=== PATIENT | female | born 1935 | race Caucasian/White ===

== ENCOUNTER 2018-11-06 15:57 | Emergency (ER) | payer OTHER ==
--- NOTE | 2018-11-06 16:05 | PDOC ---
History of Present Illness - General Chief Complaint: Injury Stated Complaint: BRUISING TO RIGHT FACE AND CHIN FELL Time Seen by Provider: 11/06/18 16:03 - History of Present Illness Initial Comments: 11/06/18 16:04 83 yo F with h/o HTN, BIBA from [facility], with diarrhea, and closed head injury s/p fall. Patient reports 2 days of loose watery stools x 4-5 per day, with absent BPR. Patient reports fall one week ago, but does not recall event. 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 Patient typically ambulates with walker unassisted at assisted nursing facility. Patient does not recall head trauma, or LOC. Denies AC. Patient reports increased thirst x 1 day. Patient denies ROMERO, vision change, tinnitus, cough, wheezing, palpitations, orthopnea, PND, leg pain/swelling, N/V, F,C, CP, SOB, urinary complaints, abdominal pain, constipation, lightheadedness, weakness, sensory changes. PMHx: as noted above. Denies h/o ACS/ID, TIA/CVA. ROS: as noted Allergies: NKDA Past History - Past Medical History Allergies/Adverse Reactions: Allergies Allergy/AdvReac Type Severity Reaction Status Date / Time No Known Allergies Allergy Unverified 11/06/18 15:58 Home Medications: Ambulatory Orders Atenolol [Tenormin -] 100 mg PO DAILY 11/06/18 Review of Systems - Review of Systems Comments:: 11/06/18 16:04 GENERAL/CONSTITUTIONAL: No fever or chills. No weakness. HEAD, EYES, EARS, NOSE AND THROAT: No change in vision. No ear pain or discharge. No sore throat. CARDIOVASCULAR: No chest pain or shortness of breath RESPIRATORY: No cough, wheezing, or hemoptysis. GASTROINTESTINAL: + diarrhea. No nausea, vomiting, constipation. GENITOURINARY: No dysuria, frequency, or change in urination. MUSCULOSKELETAL: No joint or muscle swelling or pain. No neck or back pain. SKIN: No rash NEUROLOGIC: No headache, vertigo, loss of consciousness, or change in strength/ sensation. ENDOCRINE: No increased thirst. No abnormal weight change HEMATOLOGIC/LYMPHATIC: No anemia, easy bleeding, or history of blood clots. ALLERGIC/IMMUNOLOGIC: No hives or skin allergy. *Physical Exam - Physical Exam Comments: 11/06/18 16:05 GENERAL: Awake, alert, and fully oriented, in no acute distress HEAD: normocephalic, EYES: PERRLA, EOMI, sclera anicteric, conjunctiva clear ENT: + Dry mucous membranes. Auricles normal inspection, hearing grossly normal , nares patent, oropharynx clear without exudates. NECK: Normal ROM, supple, no lymphadenopathy, JVD, or masses LUNGS: No distress, speaks full sentences, clear to auscultation bilaterally HEART: Regular rate and rhythm, normal S1 and S2, no murmurs, rubs or gallops, peripheral pulses normal and equal bilaterally. ABDOMEN: Soft, nontender, normoactive bowel sounds. No guarding, no rebound. No masses EXTREMITIES : Normal inspection, Normal range of motion, no edema. No clubbing or cyanosis. NEUROLOGICAL: Cranial nerves II through XII grossly intact. Normal speech, normal gait, no focal sensorimotor deficits SKIN: Multiple bruises/ecchymossis to right sided lateral face, nose, BL LE, and left scapula. Warm, Dry, normal turgor. ED Treatment Course - LABORATORY CBC & Chemistry Diagram: 11/06/18 16:30 11/06/18 16:35 Medical Decision Making - Medical Decision Making 11/06/18 16:06 83 yo F BIBA with vomiting, generalized weakness, recurrent falls. BP 180,83, HR 53, AF, A&Ox3, GCS 15. ACS/ID r/o.No evidence of basilar skull fracture. CTH r/o fracture, hematoma, hemorrhage. Nexus Neg C-SPINE. + Multiple bruises/ ecchymossis to right sided lateral face, nose, BL LE, and Left scapula. Will assess for VBI/TIA, hypoglycemia, cardiac dyssarythmias, electrolyte abnml, metabolic and toxic derangements, acid-base disturbances, infection. ED Course: 11/06/18 17:28 CBC: Unremarkable K+ 3.2 Kdur 40 MeQ Trop: Neg 11/06/18 17:42 EKG: NSR with absent SANTOSH, STD. Nml R wave progression, and axis. Nml interval duration. + Premature supravent contractions. 11/06/18 18:26 CTH: No acute pathoogy Patient ambulating at bedside without difficulty. 11/06/18 18:53 Patient unable to produce urine NS 1 L *DC/Admit/Observation/Transfer Diagnosis at time of Disposition: Diarrhea Qualifiers: Diarrhea type: unspecified type Qualified Code(s): R19.7 - Diarrhea, unspecified - Discharge Dispostion Condition at time of disposition: Stable Decision to Admit order: No - Referrals - Patient Instructions Printed Discharge Instructions: How to Prevent Falls Additional Instructions: Please return to the emergency department with any new or worsening symptoms or concerns. Please follow up with your primary care physician within 72 hours. - Post Discharge Activity - Attestations Physician Attestion: 11/06/18 16:05 I attest to the information provided in this note.
[2018-11-06 16:16] VITALS: BP 180/83; PULSE 52; TEMP 97.3; BMI 25.7
--- NOTE | 2018-11-06 16:35 | PDOC ---
Attending Attestation - Resident Resident Name: ChinCkFlex - ED Attending Attestation I have performed the following: I have examined & evaluated the patient, The case was reviewed & discussed with the resident, I agree w/resident's findings & plan, Exceptions are as noted - HPI HPI: 11/06/18 18:54 83 yo F with h/o HTN, BIBA from [facility] with diarrhea and closed head injury s/p fall. Diarrhea x 2 days Fall 1 week ago, yesterday and today Patient typically ambulates with walker unassisted at assisted nursing facility. Denies anticoagulation - Physicial Exam PE: 11/06/18 18:56 GENERAL: Awake, alert, and fully oriented, in no acute distress HEAD: normocephalic, EYES: PERRLA, EOMI, no scleral injection ENT: + Dry mucous membranes. hearing grossly normal NECK: Normal ROM, supple, no midline tenderness LUNGS: No distress, speaks full sentences, clear to auscultation bilaterally HEART: Regular rate and rhythm, normal S1 and S2, no murmurs, rubs or gallops, peripheral pulses normal and equal bilaterally. ABDOMEN: Soft, nontender, normoactive bowel sounds. No guarding, no rebound. No masses EXTREMITIES : Normal inspection, Normal range of motion NEUROLOGICAL: Cranial nerves II through XII grossly intact. Normal speech, normal gait, no focal sensorimotor deficits SKIN: Multiple bruises/ecchymossis to right sided lateral face, nose, BL LE, and left scapula. Warm, Dry, normal turgor. - Medical Decision Making 11/06/18 18:57 Laboratory Tests 11/06/18 11/06/18 11/06/18 16:30 16:30 16:30 WBC 8.2 Hgb 14.7 Hct 44.9 Plt Count 247 BUN Creatinine Creatine Kinase 340 H Creatine Kinase Index 3.7 CK-MB (CK-2) 12.8 H Troponin I < 0.03 11/06/18 16:35 WBC Hgb Hct Plt Count BUN 23 H Creatinine 0.7 Creatine Kinase Creatine Kinase Index CK-MB (CK-2) Troponin I EKG: NSR rate of 90 bpm, axis nml, intervals nml, no st elevation or depression CT head: Frontal sinusitis, No ICH 11/06/18 18:58 Awaiting UA Will plan to discharge to home
[2018-11-06 16:43] LABS: BASO % 0.5 % (0-2.0); EOS % 1.4 % (0-4.5); HEMATOCRIT 44.9 % (32.4-45.2); HEMOGLOBIN 14.7 GM/dl (10.7-15.3); LYMPH % 14.7 % (8-40); MCH 30.1 pg (25.7-33.7); MCHC 32.8 g/dl (32.0-36.0); MEAN CELL VOLUME 91.7 fl (80-96); MEAN PLT VOLUME 9.2 fl (7.5-11.1); MONO % 8.4 % (3.8-10.2); PLATELET COUNT 247 K/MM3 (134-434); RDW 13.8 % (11.6-15.6); WHITE BLOOD COUNT 8.2 K/mm3 (4.0-10.8)
[2018-11-06 16:58] LABS: ALBUMIN 3.7 g/dl (3.4-5.0); ALK PHOS 97 U/L (45-117); ANION GAP 12 MMOL/L (8-16); BILIRUBIN,TOTAL 0.7 mg/dl (0.2-1); BLOOD UREA NITROGEN 23 mg/dl (7-18); CALCIUM 9.9 mg/dl (8.5-10); CHLORIDE 101 mmol/L (98-107); CO2 23 mmol/L (21-32); CREATININE 0.7 mg/dl (0.55-1.3); GLUCOSE,RANDOM 105 mg/dl (74-106); POTASSIUM 3.2 mmol/L (3.5-5.1); SGOT/AST 63 U/L (15-37); SGPT/ALT 36 U/L (13-61); SODIUM 136 mmol/L (136-145)
[2018-11-06] MEDS ORDERED: POTASSIUM CHLORIDE TABS 20 MEQ TABLET.ER (FP) PO ONE ×2 (17:27→17:31)
[2018-11-06] MEDS ORDERED: SODIUM CHLORIDE 1,000 ML IV STA (18:53)
--- NOTE | 2018-11-07 16:46 | EKG ---
Test Reason : Blood Pressure : / mmHG Vent. Rate : 090 BPM Atrial Rate : 090 BPM P-R Int : 118 ms QRS Dur : 070 ms QT Int : 392 ms P-R-T Axes : 069 045 039 degrees QTc Int : 479 ms POOR DATA QUALITY, INTERPRETATION MAY BE ADVERSELY AFFECTED SINUS RHYTHM WITH PREMATURE SUPRAVENTRICULAR COMPLEXES NONSPECIFIC ST ABNORMALITY ABNORMAL ECG NO PREVIOUS ECGS AVAILABLE Confirmed by SOY RECIO, MOE ([id number]) on 11/07/2018 4:46:09 PM Referred By: MD ANDREWS Confirmed By:MOE OLIVIER MD
== END 2018-11-06 20:47 ==
LOC: FER 15:57
DX: R19.7 Diarrhea, unspecified (principal); S09.90XS Unspecified injury of head, sequela; R29.6 Repeated falls; I10 Essential (primary) hypertension; R26.2 Difficulty in walking, not elsewhere classified; Z99.89 Dependence on other enabling machines and devices; W18.30XA Fall on same level, unspecified, initial encounter; Z91.81 History of falling; Y93.9 Activity, unspecified; Y92.129 Unspecified place in nursing home as the place of occurrence of the external cause
CPT/HCPCS: 36415; 70450-TC; 80053; 82550; 82553; 84484; 85025; 93005; 99282-25

== ENCOUNTER 2020-05-24 07:13 | Emergency (ER) | payer OTHER ==
--- NOTE | 2020-05-24 07:33 | PDOC ---
History of Present Illness - General Chief Complaint: Pain, Acute Stated Complaint: Right ankle pain/fall Time Seen by Provider: 05/24/20 07:29 History Source: Patient Exam Limitations: No Limitations - History of Present Illness Initial Comments: 05/24/20 07:33 85y F hx of htn, BIBEMS from assited living for evaluation of fall. Pt states she has been feeling well recently, last night approximately 2am, she was going to the bathroom when she slipped and fell in the bathroom. She recalls slipping when she walked into the bathroom and injuring her ankle - denies any head inju ry/LOC. Denies any preceeding cp, sob, lightheadedness, palpitations,a bd pain, back pain, neck pain, bpr/melena, dysuria, fever/chills, cough. Pt states she typically ambulates with a walker. denies any AC but states sh euses asa. pt notes some pain in her shoulder which is chronic. No associated numbness tingling/weakness. Pt endorses some pain to her R leg/ankle. does not recall PMDs name - states it is very complicated. PMHx: as noted above. ROS: as noted Allergies: NKDA Past History - Medical History Allergies/Adverse Reactions: Allergies Allergy/AdvReac Type Severity Reaction Status Date / Time No Known Allergies Allergy Verified 05/24/20 09:05 Home Medications: Ambulatory Orders Atenolol [Tenormin -] 100 mg PO DAILY 11/06/18 Acetaminophen [Tylenol .Extra-Strength -] 500 mg PO BID 05/24/20 Gabapentin 300 mg PO BID 05/24/20 Lidocaine 5% Patch [Lidoderm Patch -] 1 patch TP DAILY 05/24/20 Melatonin 5 mg PO HS 05/24/20 Oxybutynin Chloride 5 mg PO DAILY 05/24/20 Pantoprazole Sodium [Protonix] 40 mg PO DAILY 05/24/20 Ramipril 5 mg PO AM 05/24/20 Ramipril 10 mg PO HS 05/24/20 Sertraline HCl 50 mg PO DAILY 05/24/20 COPD: No HTN: Yes - Reproductive History Is Patient Now?: No - Psycho-Social/Smoking History Smoking History: Never smoked Have you smoked in the past 12 months: No If you are a former smoker, when did you quit?: 16 YEARS Information on smoking cessation initiated: No - Substance Abuse Hx (Audit-C & DAST Scrn) How often the patient has a drink containing alcohol: Never Score: In Men: 4 or > Positive; In Women: 3 or > Positive: 0 Screen Result (Pos requires Nsg. Audit-10AR): Negative In the last yr the pt used illegal drug/Rx for NonMed reason: No Score: Yes response is considered Positive: 0 Screen Result (Positive result requires Nsg. DAST-10): Negative Review of Systems - Review of Systems Able to Perform ROS?: Yes Comments:: 05/24/20 07:36 Constitutional - no reported Fever, Chills, HEENT: no reported vision changes, sore throat Respiratory: no reported cough, sob, hemoptysis Cardiac: no reported chest pain, palpitations, light headedness, leg swelling Abd/GI: no reported abd pain, nausea, vomiting, blood per rectum, melena, diarrhea : no reported dysuria, frequency, discharge Musculskelatal - +R ankle/.knee pain, chronic L shoulder pain no reported back pain, joint swelling skin - no reported bruising, erythema, rash neurological: no reported headache, numbness, focal weakness, tingling, ataxia, hematologic: no reported easy bruising, easy bleeding *Physical Exam - Vital Signs Last Vital Signs Temp Pulse Resp BP Pulse Ox 99.6 F 84 160 H 160/85 99 05/24/20 07:15 05/24/20 07:15 05/24/20 07:15 05/24/20 07:15 05/24/20 07:15 - Physical Exam 05/24/20 07:39 GENERAL: The patient is awake, alert, and oriented x 2 (self, place, knows it is summer 2019 but not exact date), Nontoxic - in no acute distress. HEAD: Normocephalic, atraumatic, neg battles sign, neg racoon eyes EYES: extraocular movements intact, sclera anicteric, conjunctiva clear. ENT: Normal voice, Moist mucous membranes. NECK: Normal range of motion, supple LUNGS: Breath sounds equal, clear to auscultation bilaterally. No wheezes, no rhonchi, no rales. HEART: Regular rate and rhythm, normal S1 and S2 without murmur, rub or gallop. ABDOMEN: Soft, nontender, No guarding, no rebound. No CVA tenderness EXTREMITIES: old ecchymosis on proximal humerus/arm pits without any focal tenderness, nmormal ROM of shoulder/elbows/wreists, normal ROM of b/l hips, normal ROM of LLE, RLE some pain with passive and active ROM of knee and ankle, swelling/ecchymosis noted to R ankle. NEUROLOGICAL: No facial assymetry, Normal speech, sensation intact thrughout, n ormal ROM (excelt as limtied by pain as noted above) PSYCH: Normal mood, normal affect. SKIN: Warm, Dry, normal turgor, Procedures - Consent Consent obtained: Verbal - Splinting Splint Location: Right: Ankle Pre-Proc Neuro Vasc Exam: normal Hand-Made Type: orthoglass Splint Type: Yes: Short Leg (stirrup) Post-Proc Neuro Vasc Exam: normal [place] Bandage: 4" Sling: No Complications: No Post splint xray: No Good repositioning: Yes Heart Score/ECG Review - ECG Impressions Comment:: 05/24/20 07:46 Twelve-lead EKG was performed and reviewed by me. There is normal sinus rhythm with a normal rate. Rate of 80 The axis is normal. The intervals are normal. There is normal R wave progression There are no ST or T wave abnormalities. Impression: Normal twelve-lead EKG Medical Decision Making - Medical Decision Making 05/24/20 07:42 85y F presents sp mechanical fall pain with movement/tenderness on R ankle/knee will obtain xrays of knee/ankle and head ct/ekg to screen for arrythmia. tylenol for pain 05/24/20 09:[address] head and knee appear negative Ankle film noted for subtle nondisplaced distal fibula fracture will place in splint and have pt fu with orthopedics 05/24/20 10:50 stirrup splint placed will refer to ortho pts son jeff was notified will have pt get around by wheel chair in the mean time. Discharge - Discharge Information Problems reviewed: Yes Clinical Impression/Diagnosis: Arthritis of knee Fracture of distal end of fibula Qualifiers: Encounter type: initial encounter Fracture type: closed Fracture morphology: un specified fracture morphology Laterality: right Qualified Code(s): S82.831A - Other fracture of upper and lower end of right fibula, initial encounter for closed fracture Fall Qualifiers: Encounter type: initial encounter Qualified Code(s): W19.XXXA - Unspecified fall, initial encounter Condition: Stable Disposition: HOME - Admission No - Follow up/Referral Referrals: Phil Cormier MD [Staff Physician] - - Patient Discharge Instructions Patient Printed Discharge Instructions: DI for Ankle Fracture Additional Instructions: Return to the emergency department immediately with ANY new, persistent or worsening symptoms. It appears that you have a subtle fracture on the ankle a splint was placed. Please follow-up with orthopedics in 3 to 5 days for further evaluation. Avoid walking on your injured extremity. Keep your leg elevated to minimize swelling. Take Tylenol for any pain. You MUST call and follow up with your doctor for further evaluation of your symptoms. Results were discussed with you. Please make sure your doctor reviews the results of your emergency evaluation. Your Emergency Department visit is not complete without a follow up with your doctor. Print Language: BRITISH - Post Discharge Activity
[2020-05-24 07:40] VITALS: TEMP 99.6; BMI 27.4
[2020-05-24] MEDS ORDERED: ACETAMINOPHEN 325 MG TABLET (FP) PO ONE (07:47)
[2020-05-24] MEDS ORDERED: ACETAMINOPHEN 325 MG TABLET (FP) ONE (08:11)
[2020-05-24 10:05] VITALS: BP 134/61; PULSE 72
--- NOTE | 2020-05-24 18:28 | EKG ---
Test Reason : Blood Pressure : / mmHG Vent. Rate : 080 BPM Atrial Rate : 080 BPM P-R Int : 170 ms QRS Dur : 068 ms QT Int : 378 ms P-R-T Axes : 070 022 036 degrees QTc Int : 435 ms NORMAL SINUS RHYTHM NORMAL ECG WHEN COMPARED WITH ECG OF 06-NOV-2018 16:44, PREMATURE SUPRAVENTRICULAR COMPLEXES ARE NO LONGER PRESENT Confirmed by USMAN HADDAD MD ([id number]) on 05/24/2020 6:28:40 PM Referred By: Confirmed By:USMAN HADDAD MD
== END 2020-05-24 14:04 | disposition home or self-care (01) ==
LOC: FER 07:13
DX: S82.831A Other fracture of upper and lower end of right fibula, initial encounter for closed fracture (principal)
CPT/HCPCS: 70450-TC; 73562-TC-LT-FY; 73562-TC-RT-FY; 73610-TC-RT-FY; 73630-TC-RT-FY; 93005; 99285-25